=== PATIENT | male | born 1985 | race Caucasian/White ===

== ENCOUNTER 2019-08-11 15:00 | Emergency (ER) | payer BC ==
[2019-08-11 15:08] VITALS: BP 133/77; PULSE 99; TEMP 99.1; BMI 27.5
[2019-08-11] MEDS ORDERED: SODIUM CHLORIDE 1,000 ML IV STA (15:08)
--- NOTE | 2019-08-11 15:08 | PDOC ---
Rapid Medical Evaluation Time Seen by Provider: 08/11/19 15:07 Medical Evaluation: 08/11/19 15:07 I have performed a brief in-person evaluation of this patient. The patient presents with a chief complaint of: fever, diarrhea Pertinent physical exam findings:stable and in NAD, non-focal I have ordered the following:labs The patient will proceed to the ED for further evaluation.
[2019-08-11] MEDS ORDERED: ACETAMINOPHEN 1000 MG/100 ML VIAL (NON FORMULARY) IVPB ONE (15:27)
--- NOTE | 2019-08-11 15:30 | PDOC ---
History of Present Illness <Tiffany Bundy - Last Filed: 08/11/19 16:34> - General History Source: Patient - History of Present Illness Timing/Duration: reports: getting worse, other <Yonas Baird - Last Filed: 08/11/19 17:14> - General Chief Complaint: Diarrhea Stated Complaint: RESPIRATORY SYMPTOMS Time Seen by Provider: 08/11/19 15:07 Past History <Tiffany Bundy - Last Filed: 08/11/19 16:34> - Past Medical History COPD: No - Psycho Social/Smoking Cessation Hx Smoking History: Current every day smoker Number of Cigarettes Smoked Daily: 10 Information on smoking cessation initiated: No Hx Alcohol Use: No Drug/Substance Use Hx: No <Yonas Baird - Last Filed: 08/11/19 17:14> - Past Medical History Allergies/Adverse Reactions: Allergies Allergy/AdvReac Type Severity Reaction Status Date / Time No Known Allergies Allergy Verified 08/11/19 15:08 Review of Systems - Review of Systems Constitutional: Yes: Malaise, Weakness. No: Chills, Fever ABD/GI: Yes: Diarrhea. No: Nausea, Vomiting : No: Dysuria <Yonas Baird - Last Filed: 08/11/19 17:14> *Physical Exam - Vital Signs Last Vital Signs Temp Pulse Resp BP Pulse Ox 99.1 F 99 H 16 133/77 98 08/11/19 15:05 08/11/19 15:05 08/11/19 15:05 08/11/19 15:05 08/11/19 15:05 <Tiffany Bundy - Last Filed: 08/11/19 16:34> - Vital Signs Last Vital Signs Temp Pulse Resp BP Pulse Ox 99.1 F 99 H 16 133/77 98 08/11/19 15:05 08/11/19 15:05 08/11/19 15:05 08/11/19 15:05 08/11/19 15:05 - Physical Exam Comments: 08/11/19 15:31 peyman mildy lethargic General Appearance: Yes: Appropriately Dressed. No: Apparent Distress HEENT: positive: Normal Voice Neck: positive: Supple Respiratory/Chest: negative: Respiratory Distress Gastrointestinal/Abdominal: positive: Normal Bowel Sounds, Tender (minimal ttp to mid/LLQ, NT over RUQ), Soft. negative: Distended, Guarding, Rebound Musculoskeletal: negative: CVA Tenderness Integumentary: positive: Dry, Warm Neurologic: positive: Fully Oriented, Alert, Normal Mood/Affect <Yonas Baird - Last Filed: 08/11/19 17:14> ED Treatment Course - LABORATORY CBC & Chemistry Diagram: 08/11/19 15:20 08/11/19 15:20 - ADDITIONAL ORDERS Additional order review: Laboratory Results 08/11/19 15:20 Lipase 92 08/11/19 15:20 RBC 5.73 H MCV 80.7 MCHC 32.4 RDW 15.8 MPV 7.9 Neutrophils % 80.5 Lymphocytes % 10.6 Monocytes % 8.5 Eosinophils % 0.1 Basophils % 0.3 - Medications Given in the ED: ED Medications Discontinued Medications Generic Name Dose Route Start Last Admin Trade Name Freq PRN Reason Stop Dose Admin Acetaminophen 1,000 mg 08/11/19 15:27 08/11/19 15:43 Ofirmev Injection - IVPB 08/11/19 15:28 1,000 mg ONCE ONE Administration Sodium Chloride 1,000 mls @ 1,000 mls/hr 08/11/19 15:08 08/11/19 15:43 Normal Saline - IV 08/11/19 16:07 1,000 mls/hr ASDIR STA Administration <Tiffany Bundy - Last Filed: 08/11/19 16:34> - LABORATORY CBC & Chemistry Diagram: 08/11/19 15:20 08/11/19 15:20 <Yonas Baird - Last Filed: 08/11/19 17:14> Medical Decision Making - Medical Decision Making The patient was seen and evaluated in conjunction with midlevel provider under my direct supervision, ancillary studies were reviewed. I agree with the plan as outlined with ANA Baird. HPI, workup/dispo as outlined. VS reviewed, wnl. 9 16:35 <Tiffany Bundy - Last Filed: 08/11/19 16:34> - Medical Decision Making 08/11/19 15:25 34 yo M, no sig hx, here w/ numerous episodes of non-bloody watery diarrhea x3 days. At some point developed vague lower abdominal pain. No nausea, vomiting , fever or chills. Feels weak at this time. No sick contacts, unusual food, recent antibiotic use or travel. No history of similar symptoms. see exam Diarrhea Possibly viral No RF for serious dysentery Stable here w/ poorly localized ttp to lower abd -supportive tx in ED -labs -reassess 08/11/19 16:53 Labs only remarkable for mildly elevated WBC at 12. On reassessment patient states he feels significantly better and that he currently has no pain. Feels well enough to be discharged. Reasons to return discussed with patient <Yonas Baird - Last Filed: 08/11/19 17:14> Discharge <Tiffany Bundy - Last Filed: 08/11/19 16:34> - Discharge Information Problems reviewed: Yes <Yonas Baird - Last Filed: 08/11/19 17:14> - Discharge Information Clinical Impression/Diagnosis: Diarrhea Qualifiers: Diarrhea type: unspecified type Qualified Code(s): R19.7 - Diarrhea, unspecified Condition: Improved Disposition: HOME - Patient Discharge Instructions Patient Printed Discharge Instructions: Diarrhea Additional Instructions: Most causes of diarrhea are self-limited. Make sure to drink plenty of fluids and take Tylenol as needed for pain If symptoms worsens as discussed, return to ER - Post Discharge Activity Work/Back to School Note: Back to Work
[2019-08-11] MEDS ORDERED: ACETAMINOPHEN INJECTION 100 ML IVPB ONE (15:31)
[2019-08-11 16:23] LABS: BASO % 0.3 % (0-2.0); EOS % 0.1 % (0-4.5); HEMATOCRIT 46.2 % (35.4-49); LYMPH % 10.6 % (8-40); MCH 26.1 pg (25.7-33.7); MCHC 32.4 g/dl (32.0-35.9); MEAN CELL VOLUME 80.7 fl (80-96); MEAN PLT VOLUME 7.9 fl (7.5-11.1); MONO % 8.5 % (3.8-10.2); NEUT % 80.5 % (42.8-82.8); PLATELET COUNT 273 K/MM3 (134-434); RBC 5.73 M/mm3 (4.00-5.60); RDW 15.8 % (11.9-15.9); WHITE BLOOD COUNT 12.2 K/mm3 (4.0-10.0)
[2019-08-11 16:42] LABS: ALBUMIN 3.3 g/dl (3.4-5.0); BILIRUBIN,TOTAL 0.6 mg/dL (0.2-1); BLOOD UREA NITROGEN 10.1 mg/dL (7-18); CALCIUM 8.6 mg/dL (8.5-10.1); CREATININE 1.3 mg/dL (0.55-1.3); POTASSIUM 4.1 mmol/L (3.5-5.1); TOT PROT 7.3 g/dl (6.4-8.2)
== END 2019-08-11 17:05 | disposition home or self-care (01) ==
LOC: JER 15:00
PROC: 3E033NZ Introduction of Analgesics, Hypnotics, Sedatives into Peripheral Vein, Percutaneous Approach (ICD-10-PCS; principal; 2019-08-11)
DX: R53.1 Weakness (principal); R19.7 Diarrhea, unspecified
CPT/HCPCS: 36415; 80053; 83690; 85025; 99284-25; J0131; J7030